=== PATIENT | female | born 1985 | race African-American/Black ===

== ENCOUNTER 2018-05-13 11:35 | Observation (INO) ==
[2018-05-13] MEDS ORDERED: ACETAMINOPHEN 500 MG TABLET PO STA (12:20)
[2018-05-13] MEDS ORDERED: ACETAMINOPHEN 500 MG TABLET ONE (12:21)
[2018-05-13 12:27] LABS: Basophils # 0.1 10*3/uL (0.0-0.2); Basophils % 0.4 % (0.0-0.8); Eosinophils % 0.2 % (0.00-10.9); Hematocrit 31.4 VOL% (35.7-47.0); Immature Granulocytes % 0.4 %; Immature Granulocytes Absolute 0.05 #; Lymphocytes % 16.5 % (21.3-54.2); Mean Corpuscular Hemoglobin 26 PG (27-34); Mean Corpuscular Volume 74.1 FL (87-102); Mean Platelet Volume 11.3 FL (9.6-12.0); Monocytes # 1.4 10*3/uL (0.11-0.8); Monocytes % 11.5 % (1.7-12.7); Neutrophils # 8.7 10*3/uL (1.4-7.4); Platelet Count 311 T/CUMM (130-400); Red Blood Count 4.24 MC/CUMM (3.8-5.5); Red Cell Distribution Width 12.2 % (9.3-17.3); White Blood Count 12.3 T/CUMM (4-12)
[2018-05-13 12:40] LABS: Apearance,Urine Slightly Hazy (Clear); Bilirubin,Urine Negative (Negative); Blood, Urine Large mg/dL (Negative); Glucose,Urine (UA) Negative (Negative); Ketones,Urine Negative (Negative); Nitrite,Urine Positive (Negative); Protein,Urine 30 MG/DL; Urine Color Yellow (Yellow); WBC,Urine 20-25 /HPF (0-6)
[2018-05-13 12:41] LABS: Amorphous Crystals,Urine Occasional /HPF (Few); Bacteria,Urine Few /HPF (Few); Mucus,Urine Few /LPF (Occasional); Squamous Epithelial Cell,Urine Few /HPF (0-10)
[2018-05-13 12:46] LABS: Alanine Aminotransferase 70 U/L (13-56); Albumin 3.4 G/DL (3.4-5.0); Alkaline Phosphatase 185 U/L (45-117); Aspartate Amino Transferase 82 U/L (0-37); Bilirubin,Total < 0.39 MG/DL (0.2-1.0); Blood Urea Nitrogen 16 MG/DL (7-18); Calcium 9.6 MG/DL (8.5-10.1); Glucose 93 MG/DL (74-106); Lactic Acid 1.2 MMOL/L (0.4-2.0); Osmolality,Calculated 264.5 MOS/KG (273-304); Potassium 2.9 MMOL/L (3.5-5.1); Sodium 132 MMOL/L (136-145); Total Protein 8.8 G/DL (6.4-8.3)
[2018-05-13] MEDS ORDERED: cefTRIAXone 1,000 MG in SODIUM CHLORIDE 0.9% 100 ML IV STA (13:13)
[2018-05-13] MEDS ORDERED: POTASSIUM CHLORIDE 20 MEQ TABLET PO STA (13:14)
[2018-05-13] MEDS ORDERED: SODIUM CHLORIDE 0.9% 1,000 ML IV STA (13:37)
[2018-05-13] MEDS ORDERED: cefTRIAXone 1,000 MG in SYRINGE 1 EACH IV STA (13:38)
[2018-05-13] MEDS ORDERED: SODIUM CHLORIDE 0.9% 2,300 ML IV ONE (14:41)
[2018-05-13] MEDS ORDERED: ONDANSETRON 4 MG/2 ML VIAL IV PRN (14:45)
[2018-05-13] MEDS ORDERED: diphenhydrAMINE CAP 25 MG CAPSULE PO PRN (14:45)
[2018-05-13] MEDS ORDERED: MAGNESIUM SULF RIDER 2 GM in PREMIX 1 EACH IV PRN (14:50)
[2018-05-13] MEDS ORDERED: MAGNESIUM SULF RIDER 4 GM in PREMIX 1 EACH IV PRN (14:50)
[2018-05-13] MEDS ORDERED: MAGNESIUM SULF RIDER 1 GM in PREMIX 1 EACH IV STA (14:52)
[2018-05-13] MEDS ORDERED: LEVOFLOXACIN INJ 500 MG in PREMIX 1 EACH IV SCH (15:00)
[2018-05-13] MEDS ORDERED: MEROPENEM 1,000 MG in SYRINGE 1 EACH IV SCH (15:00)
[2018-05-13] MEDS ORDERED: PROMETHAZINE 25 MG TABLET PO PRN (17:05)
[2018-05-13] MEDS: SODIUM CHLORIDE 0.9% 1,000 ML IV SCH (19:19)
[2018-05-13] MEDS ORDERED: SODIUM CHLOR 0.9% KCL 40 MEQ 40 MEQ/1,000 ML BAG IV ONE (21:30)
[2018-05-13 21:37] LABS: Free T4 (Free Thyroxine) 1.24 NG/DL (0.76-1.46); Thyroid Stimulating Hormone 0.356 uIU/ml (0.358-3.74)
[2018-05-13] MEDS: MEROPENEM 1,000 MG in SYRINGE 1 EACH IV SCH (22:17)
[2018-05-13] MEDS: HEPARIN 5,000 UNIT/1 ML VIAL SUBCUT SCH (22:18)
[2018-05-13] MEDS: GABAPENTIN 300 MG CAPSULE PO SCH (22:18)
[2018-05-13] MEDS: ACETAMINOPHEN 325 MG TABLET PO PRN (22:24)
[2018-05-13] MEDS: tiZANidine 4 MG TABLET PO SCH (22:25)
[2018-05-14] MEDS: MEROPENEM 1,000 MG in SYRINGE 1 EACH IV SCH ×3 (04:18→20:45)
[2018-05-14] MEDS: HEPARIN 5,000 UNIT/1 ML VIAL SUBCUT SCH ×3 (04:19→20:44)
[2018-05-14 06:15] LABS: Basophils % 0.2 % (0.0-0.8); Eosinophils # 0.1 10*3/uL (0.0-0.87); Eosinophils % 0.4 % (0.00-10.9); Hemoglobin 10.3 GM/DL (12.0-16.0); Immature Granulocytes % 0.5 %; Immature Granulocytes Absolute 0.06 #; Lymphocytes # 2.2 10*3/uL (1.4-4.0); Mean Corpuscular HGB Conc 34.3 GM/DL (32-36); Mean Corpuscular Hemoglobin 26 PG (27-34); Mean Corpuscular Volume 74.6 FL (87-102); Mean Platelet Volume 11.1 FL (9.6-12.0); Monocytes # 1.6 10*3/uL (0.11-0.8); Monocytes % 13.1 % (1.7-12.7); Neutrophils # 8.4 10*3/uL (1.4-7.4); Neutrophils % 67.8 % (38.7-73.9); Platelet Count 280 T/CUMM (130-400); Red Blood Count 4.02 MC/CUMM (3.8-5.5); Red Cell Distribution Width 12.3 % (9.3-17.3); White Blood Count 12.4 T/CUMM (4-12)
[2018-05-14 06:43] LABS: Albumin 3.1 G/DL (3.4-5.0); Bilirubin,Total 0.7 MG/DL (0.2-1.0); Calcium 9.3 MG/DL (8.5-10.1); Osmolality,Calculated 274.7 MOS/KG (273-304); Potassium 3.1 MMOL/L (3.5-5.1); Total Protein 8.3 G/DL (6.4-8.3)
[2018-05-14 07:01] LABS: Risk Ratio 2.3; VLDL CHOLESTEROL 15.8 MG/DL
[2018-05-14] MEDS: ACETAMINOPHEN 325 MG TABLET PO PRN (09:23)
[2018-05-14] MEDS: PANTOPRAZOLE 40 MG TABLET PO SCH (09:24)
[2018-05-14] MEDS: SODIUM CHLORIDE 0.9% 1,000 ML IV SCH ×2 (11:35→20:48)
[2018-05-14] MEDS: POTASSIUM CHLORIDE RIDER 10 MEQ in PREMIX 1 EACH IV PRN ×3 (13:23→15:45)
[2018-05-14] MEDS: tiZANidine 4 MG TABLET PO SCH (20:42)
[2018-05-14] MEDS: GABAPENTIN 300 MG CAPSULE PO SCH (20:42)
[2018-05-15] MEDS: HEPARIN 5,000 UNIT/1 ML VIAL SUBCUT SCH ×3 (03:46→21:29)
[2018-05-15] MEDS: SODIUM CHLORIDE 0.9% 1,000 ML IV SCH (03:47)
[2018-05-15] MEDS: MEROPENEM 1,000 MG in SYRINGE 1 EACH IV SCH (03:47)
[2018-05-15 05:59] LABS: Basophils % 0.4 % (0.0-0.8); Eosinophils # 0.1 10*3/uL (0.0-0.87); Eosinophils % 0.8 % (0.00-10.9); Hematocrit 24.6 VOL% (35.7-47.0); Hemoglobin 8.4 GM/DL (12.0-16.0); Immature Granulocytes % 0.3 %; Immature Granulocytes Absolute 0.02 #; Lymphocytes # 2.2 10*3/uL (1.4-4.0); Mean Corpuscular HGB Conc 34.1 GM/DL (32-36); Mean Corpuscular Hemoglobin 26 PG (27-34); Mean Corpuscular Volume 76.4 FL (87-102); Mean Platelet Volume 11.2 FL (9.6-12.0); Monocytes # 1.2 10*3/uL (0.11-0.8); Monocytes % 16.2 % (1.7-12.7); Neutrophils # 3.8 10*3/uL (1.4-7.4); Neutrophils % 52.3 % (38.7-73.9); Platelet Count 256 T/CUMM (130-400); Red Blood Count 3.22 MC/CUMM (3.8-5.5); Red Cell Distribution Width 12.7 % (9.3-17.3); White Blood Count 7.2 T/CUMM (4-12)
[2018-05-15 06:18] LABS: Calcium 8.4 MG/DL (8.5-10.1); Osmolality,Calculated 279.1 MOS/KG (273-304); Potassium 3.9 MMOL/L (3.5-5.1)
[2018-05-15 06:41] LABS: Band Neutrophils 5 % (0-10); Lymphocytes 41 % (20-55); Segmented Neutrophils 48 % (50-85); Total Cells Counted 100
[2018-05-15 06:43] LABS: Anisocytosis 1+; Hypochromasia 1+; Platelet Estimate Normal; Target Cells 1+
[2018-05-15] MEDS: PANTOPRAZOLE 40 MG TABLET PO SCH (09:13)
[2018-05-15] MEDS: LEVOFLOXACIN 500 MG TABLET PO SCH (11:38)
[2018-05-15 11:40] LABS: Basophils % 0.4 % (0.0-0.8); Eosinophils # 0.1 10*3/uL (0.0-0.87); Eosinophils % 1.2 % (0.00-10.9); Hematocrit 30.4 VOL% (35.7-47.0); Immature Granulocytes % 0.2 %; Immature Granulocytes Absolute 0.02 #; Lymphocytes # 3.1 10*3/uL (1.4-4.0); Lymphocytes % 38.3 % (21.3-54.2); Mean Corpuscular HGB Conc 33.9 GM/DL (32-36); Mean Corpuscular Hemoglobin 26 PG (27-34); Mean Corpuscular Volume 75.8 FL (87-102); Mean Platelet Volume 11.1 FL (9.6-12.0); Monocytes # 1.3 10*3/uL (0.11-0.8); Monocytes % 15.4 % (1.7-12.7); Neutrophils # 3.6 10*3/uL (1.4-7.4); Neutrophils % 44.5 % (38.7-73.9); Platelet Count 306 T/CUMM (130-400); Red Cell Distribution Width 12.7 % (9.3-17.3); White Blood Count 8.1 T/CUMM (4-12)
[2018-05-15 11:46] LABS: Hemoglobin 10.3 GM/DL (12.0-16.0); Red Blood Count 4.01 MC/CUMM (3.8-5.5)
[2018-05-15] MEDS: GABAPENTIN 300 MG CAPSULE PO SCH (21:29)
[2018-05-15] MEDS: tiZANidine 4 MG TABLET PO SCH (21:29)
[2018-05-16] MEDS: HEPARIN 5,000 UNIT/1 ML VIAL SUBCUT SCH ×2 (03:39→14:56)
[2018-05-16 06:18] LABS: Basophils % 0.5 % (0.0-0.8); Eosinophils # 0.1 10*3/uL (0.0-0.87); Eosinophils % 1.1 % (0.00-10.9); Hemoglobin 9.4 GM/DL (12.0-16.0); Immature Granulocytes % 0.2 %; Immature Granulocytes Absolute 0.01 #; Lymphocytes # 3.4 10*3/uL (1.4-4.0); Lymphocytes % 55.2 % (21.3-54.2); Mean Corpuscular HGB Conc 33.6 GM/DL (32-36); Mean Corpuscular Hemoglobin 26 PG (27-34); Mean Corpuscular Volume 76.3 FL (87-102); Mean Platelet Volume 10.9 FL (9.6-12.0); Monocytes # 0.9 10*3/uL (0.11-0.8); Monocytes % 13.8 % (1.7-12.7); Neutrophils # 1.8 10*3/uL (1.4-7.4); Neutrophils % 29.2 % (38.7-73.9); Platelet Count 314 T/CUMM (130-400); Red Blood Count 3.67 MC/CUMM (3.8-5.5); Red Cell Distribution Width 12.5 % (9.3-17.3); White Blood Count 6.2 T/CUMM (4-12)
[2018-05-16 06:34] LABS: Calcium 9.3 MG/DL (8.5-10.1); Osmolality,Calculated 277.3 MOS/KG (273-304); Potassium 3.4 MMOL/L (3.5-5.1)
[2018-05-16 06:50] LABS: Atypical Lymphocytes Few; Eosinophils 1 % (0-10); Hypochromasia 1+; Lymphocytes 61 % (20-55); Platelet Estimate Adequate; Segmented Neutrophils 26 % (50-85); Total Cells Counted 100
[2018-05-16 06:51] LABS: Target Cells Slight
[2018-05-16] MEDS: PANTOPRAZOLE 40 MG TABLET PO SCH (08:44)
[2018-05-16] MEDS: POTASSIUM CHLORIDE RIDER 10 MEQ in PREMIX 1 EACH IV PRN (09:24)
[2018-05-16] MEDS ORDERED: POTASSIUM CHLORIDE 20 MEQ TABLET PO ONE (10:09)
[2018-05-16] MEDS: LEVOFLOXACIN 500 MG TABLET PO SCH (11:07)
[2018-05-16 13:58] VITALS: BP 112/83
== END 2018-05-16 14:57 | disposition home or self-care (01) | DRG 463 ==
LOC: N.ED 11:35 → N.EDINP 14:38 → INTOOBSV 14:38 → N.EDINP 16:57 → N.5E 19:39
PROVIDERS: ADMIT Internal Medicine; ATTEND Internal Medicine

== ENCOUNTER 2022-11-09 05:53 | Observation (INO) ==
[2022-11-09 06:17] LABS: Basophils % 0.3 % (0.0-0.8); Eosinophils # 0.2 10*3/uL (0.0-0.87); Eosinophils % 3.2 % (0.00-10.9); Hematocrit 35.9 VOL% (35.7-47.0); Hemoglobin 11.9 GM/DL (12.0-16.0); Immature Granulocytes % 0.2 %; Immature Granulocytes Absolute 0.01 #; Lymphocytes # 2.7 10*3/uL (1.4-4.0); Lymphocytes % 42.7 % (21.3-54.2); Mean Corpuscular HGB Conc 33.1 GM/DL (32-36); Mean Corpuscular Volume 75.6 FL (87-102); Mean Platelet Volume 10.3 FL (9.6-12.0); Monocytes # 0.6 10*3/uL (0.11-0.8); Monocytes % 9.9 % (1.7-12.7); Neutrophils % 43.7 % (38.7-73.9); Platelet Count 268 T/CUMM (130-400); Red Blood Count 4.75 MC/CUMM (3.8-5.5); Red Cell Distribution Width 14.5 % (9.3-17.3); White Blood Count 6.3 T/CUMM (4-12)
[2022-11-09] MEDS ORDERED: SODIUM CHLORIDE 0.9% 1,000 ML IV STA (06:17)
[2022-11-09] MEDS ORDERED: HYDROmorphone 1 MG/1 ML SYRINGE IV STA (06:17)
[2022-11-09] MEDS ORDERED: ONDANSETRON 4 MG/2 ML VIAL IV STA (06:17)
[2022-11-09 06:41] LABS: Alanine Aminotransferase 24 U/L (13-56); Alkaline Phosphatase 107 U/L (45-117); Aspartate Amino Transferase 24 U/L (0-37); Bilirubin,Total < 0.39 MG/DL (0.20-1.00); Blood Urea Nitrogen 8 MG/DL (7-18); Calcium 9.3 MG/DL (8.5-10.1); Carbon Dioxide 29 MMOL/L (21-32); Chloride 106 MMOL/L (98-107); Glucose 100 MG/DL (74-106); Osmolality,Calculated 276.4 MOS/KG (273-304); Potassium 3.6 MMOL/L (3.5-5.1); Sodium 140 MMOL/L (136-145); Total Protein 8.1 G/DL (6.4-8.2)
[2022-11-09 06:52] LABS: Bacteria,Urine Occasional /HPF (Few); Mucus,Urine Occasional /LPF (Occasional); RBC,Urine 1 /HPF (0-4); Squamous Epithelial Cell,Urine Occasional /HPF (0-10)
[2022-11-09 06:53] LABS: Bilirubin,Urine Negative (Negative); Blood, Urine Trace mg/dL (Negative); Glucose,Urine (UA) Negative (Negative); Ketones,Urine Negative (Negative); Nitrite,Urine Positive (Negative); Protein,Urine Trace mg/dL (Negative); Urine Appearance Clear (Clear); Urine Color Yellow (Yellow); Urine Urobilinogen 0.2 eU/dL (<2.0); Urine pH > 9.0 (4.5-8.0)
[2022-11-09] MEDS ORDERED: INDOCYANINE GREEN 25 MG VIAL IV ONE (11:14)
[2022-11-09] MEDS ORDERED: hydrALAZINE 20 MG/1 ML VIAL IV STA (12:23)
[2022-11-09] MEDS ORDERED: FAMOTIDINE 20 MG/2 ML VIAL IV STA (12:23)
[2022-11-09] MEDS: LACTATED RINGERS 1,000 ML IV SCH ×2 (12:26→17:36)
[2022-11-09] MEDS ORDERED: LIDOCAINE 1%/EPI INJ 20 ML VIAL ONE (12:31)
[2022-11-09] MEDS ORDERED: TISSUE ADHESIVE 1 EACH APPLICATOR TOP ONE (12:31)
[2022-11-09] MEDS ORDERED: BUPIVACAINE MPF 0.25% 10 ML VIAL ONE (12:31)
[2022-11-09] MEDS ORDERED: LIDOCAINE 2% 5 ML VIAL ONE (12:35)
[2022-11-09] MEDS ORDERED: SEVOFLURANE 1 UNIT/15 MINUTE INH ONE ×2 (12:35→13:50)
[2022-11-09] MEDS ORDERED: propofoL 200 MG/20 ML VIAL IV ONE (12:35)
[2022-11-09] MEDS ORDERED: ROCURONIUM 50 MG/5 ML VIAL IV ONE (12:35)
[2022-11-09] MEDS ORDERED: MIDAZOLAM 2 MG/2 ML VIAL ONE (12:36)
[2022-11-09] MEDS ORDERED: fentaNYL 100 MCG/2 ML VIAL ONE (12:36)
[2022-11-09] MEDS ORDERED: ONDANSETRON 4 MG/2 ML VIAL ONE (13:43)
[2022-11-09] MEDS ORDERED: ACETAMINOPHEN INJ 1,000 MG/100 ML VIAL IV ONE (13:50)
[2022-11-09] MEDS ORDERED: KETOROLAC 30 MG/1 ML VIAL ONE (13:50)
[2022-11-09] MEDS ORDERED: LABETALOL 20 MG/4 ML SYRINGE IV ONE (13:59)
[2022-11-09] MEDS ORDERED: GLYCOPYRROLATE 0.4 MG/2 ML VIAL ONE (14:02)
[2022-11-09] MEDS ORDERED: NEOSTIGMINE 10 MG/10 ML VIAL ONE (14:03)
[2022-11-09] MEDS ORDERED: SUGAMMADEX 200 MG/2 ML VIAL IV ONE (14:20)
[2022-11-09] MEDS ORDERED: hydrALAZINE 20 MG/1 ML VIAL IV ONE (14:31)
[2022-11-09] MEDS ORDERED: ONDANSETRON 4 MG/2 ML VIAL IV PRN (14:52)
[2022-11-09] MEDS: HYDROmorphone 1 MG/1 ML SYRINGE IV PRN ×2 (14:53→15:00)
[2022-11-09] MEDS ORDERED: ONDANSETRON 4 MG/2 ML VIAL IV ONE (17:18)
[2022-11-09] MEDS: ONDANSETRON 4 MG/2 ML VIAL IV PRN (21:52)
[2022-11-10] MEDS: ONDANSETRON 4 MG/2 ML VIAL IV PRN (05:02)
[2022-11-10 08:09] VITALS: BP 127/75
== END 2022-11-10 10:33 | disposition home or self-care (01) ==
LOC: N.ED 05:53 → N.SDSINP 05:53 → N.3E 05:53 → N.ED 12:09 → N.3E 12:09 → N.SDSINP 12:19 → N.ED 12:20 → OBSVTOIN 17:27 → INTOOBSV 17:27 → N.3E 18:12
PROVIDERS: ADMIT Surgery; ATTEND Surgery